=== PATIENT | female | born 2000 | race Caucasian/White ===

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

== ENCOUNTER 2018-03-22 17:52 | Emergency (ER) | payer OTHER ==
[~2018-03-22] VITALS: Ht 152.4 cm; Wt 82.6 kg
[2018-03-22 18:07] VITALS: Ht 152.4 cm; Wt 82.6 kg
[2018-03-22 20:51] VITALS: BP 120/68
== END 2018-03-22 20:51 | disposition home or self-care (01) ==
LOC: ED 17:52
DX: N83.202 Unspecified ovarian cyst, left side (principal); R10.2 Pelvic and perineal pain; R10.32 Left lower quadrant pain

== ENCOUNTER 2018-07-10 14:34 | Emergency (ER) | payer OTHER ==
[~2018-07-10] VITALS: Ht 152.4 cm; Wt 78.5 kg
[2018-07-10 14:35] VITALS: Ht 152.4 cm; Wt 78.5 kg
[2018-07-10 16:31] VITALS: BP 126/74
== END 2018-07-10 16:31 | disposition home or self-care (01) ==
LOC: ED 14:34
DX: M77.9 Enthesopathy, unspecified (principal)